=== PATIENT | female | born 1945 | race Two or more races ===

== ENCOUNTER 2020-10-26 08:44 | Emergency (ER) | payer MEDICARE, OTHER ==
[~2020-10-26] VITALS: Ht 152.4 cm; Wt 93.4 kg
[2020-10-26 10:49] VITALS: BP 151/70
[2020-10-26] MEDS ORDERED: cefTRIAXone SOD 1,000 MG VL IM ONE (11:00)
[2020-10-26] MEDS ORDERED: cefTRIAXone SOD 1,000 MG VL ONE (11:01)
== END 2020-10-26 11:24 | disposition home or self-care (01) ==
LOC: ER 08:44
DX: L03.116 Cellulitis of left lower limb (principal); E78.5 Hyperlipidemia, unspecified; I10 Essential (primary) hypertension; Z88.5 Allergy status to narcotic agent; Z90.89 Acquired absence of other organs; Z90.710 Acquired absence of both cervix and uterus; Z98.890 Other specified postprocedural states
CPT/HCPCS: 96372; 99283; J0696

== ENCOUNTER 2020-10-29 14:42 | Inpatient (IN) | payer OTHER ==
[~2020-10-29] VITALS: Ht 152.4 cm; Wt 95.0 kg
[2020-10-29] MEDS ORDERED: ACETAMINOPHEN 325 MG TAB PO PRN (16:45)
[2020-10-29] MEDS ORDERED: ONDANSETRON HCL 4 MG/2 ML VIAL IV PRN (16:45)
[2020-10-29] MEDS ORDERED: TEMAZEPAM 15 MG CAP PO PRN (16:45)
[2020-10-29] MEDS ORDERED: DOCUSATE SOD 100 MG CAP PO PRN (16:45)
[2020-10-29] MEDS ORDERED: NITROGLYCERIN 0.4 MG SL TAB SL PRN (16:45)
[2020-10-29] MEDS ORDERED: CEFEPIME 2 GM in SODIUM CHL 0.9% 50 ML IV ONE (16:45)
[2020-10-29 17:25] LABS: Basophils # (auto) 0.1 10 ^3/uL (0-0.2); Eosinophils # (auto) 0.1 10 ^3/uL (0-0.8); Eosinophils % (auto) 1.6 % (0.0-7.0); Hematocrit 36.2 % (36.0-46.0); Hemoglobin 12.5 g/dL (12.2-16.2); Lymphocytes # (auto) 0.7 10 ^3/uL (0.4-5.4); Mean Corpuscular Hemoglobin 30.5 pg (28.0-32.0); Mean Corpuscular Hgb Conc. 34.5 g/dL (32.0-36.0); Mean Corpuscular Volume 88.4 fL (80.0-100.0); Monocytes # (auto) 0.5 10 ^3/uL (0-1.3); Monocytes % (auto) 8.2 % (0.0-12.0); Neutrophils % (auto) 78.2 % (37.0-80.0); Red Blood Cells 4.09 10^6/uL (4.0-5.20); Red Cell Distribution Width 15.6 % (11.8-14.3); White Blood Cell 6.4 10^3/uL (4.4-10.8)
[2020-10-29 17:26] VITALS: BP 104/78
[2020-10-29] MEDS: DOXYCYCLINE 100MG/250ML 250 ML IV SCH (17:32)
[2020-10-29 17:48] LABS: Albumin 3.1 g/dL (3.4-5.0); Calcium 8.6 mg/dL (8.5-10.1); Magnesium 1.9 mg/dL (1.6-2.6)
[2020-10-29] MEDS ORDERED: FURO20TA3 PO (17:53)
[2020-10-29] MEDS ORDERED: TRAM50TA2 PO (17:53)
[2020-10-29] MEDS ORDERED: POTA1TAB61 PO (17:53)
[2020-10-29] MEDS ORDERED: CEPH500C PO (17:53)
[2020-10-29] MEDS ORDERED: LOSA-39 PO (17:53)
[2020-10-29] MEDS ORDERED: HYDR25TA4 PO (17:53)
[2020-10-29] MEDS ORDERED: NEBI10TA2 PO (17:53)
[2020-10-29 17:55] LABS: BUN/Creatinine Ratio 15.6; Bilirubin, Total 0.4 mg/dL (0.2-1.0); CRP High Sensitivity 2.05 mg/dL (< 0.3); Total Protein 7.2 g/dL (6.4-8.2)
[2020-10-29 18:46] LABS: Potassium 2.9 mmol/L (3.5-5.1)
[2020-10-29] MEDS ORDERED: POTASSIUM CHL 20 Meq TABLET PO ONE ×2 (19:00→22:00)
[2020-10-29 20:00] VITALS: BP 136/67
[2020-10-29] MEDS ORDERED: FAMOTIDINE 20 MG TAB PO ONE (20:30)
[2020-10-29] MEDS ORDERED: ALUM & MAG HYDROX-SIMETH LIQ(MAALOX) 30 ML PO PRN (20:30)
[2020-10-29 22:00] VITALS: BP 136/67
[2020-10-29] MEDS: SODIUM CHLOR 0.9% PF (SALINE LOCK) 10ML VIAL/SYR IV SCH (22:00)
[2020-10-29] MEDS ORDERED: MAGNESIUM OXIDE 400 MG TAB PO ONE (22:00)
[2020-10-29 23:27] LABS: Urine Bacteria FEW /hpf (None Seen); Urine Blood Negative /uL (Negative); Urine Mucus FEW (None Seen); Urine Specific Gravity 1.012 (1.001-1.035); Urine WBC 1 /hpf (0 - 5)
[2020-10-30] MEDS: CEFEPIME 1 GM in SODIUM CHL 0.9% 50 ML IV SCH ×2 (00:55→08:37)
[2020-10-30] MEDS: DOXYCYCLINE 100MG/250ML 250 ML IV SCH ×2 (04:47→08:38)
[2020-10-30 05:00] VITALS: BP 153/60
[2020-10-30 05:23] LABS: Calcium 8.6 mg/dL (8.5-10.1); Magnesium 1.8 mg/dL (1.6-2.6); Potassium 3.3 mmol/L (3.5-5.1)
[2020-10-30 05:25] LABS: BUN/Creatinine Ratio 22.6
[2020-10-30 05:31] LABS: Cholesterol 150 mg/dL (< 200); HDL Cholesterol 58 mg/dL (40-59); LDL Cholesterol 80 mg/dL (< 100); Triglycerides 105 mg/dL (< 150)
[2020-10-30] MEDS: SODIUM CHLOR 0.9% PF (SALINE LOCK) 10ML VIAL/SYR IV SCH ×3 (06:00→22:05)
[2020-10-30] MEDS: LEVOTHYROXINE SODIUM 50 MCG TAB PO SCH (06:47)
[2020-10-30] MEDS ORDERED: MAGNESIUM OXIDE 400 MG TAB PO ONE (08:30)
[2020-10-30] MEDS ORDERED: POTASSIUM CHL 20 Meq TABLET PO ONE ×2 (08:30→12:00)
[2020-10-30 09:00] VITALS: BP 162/71
[2020-10-30] MEDS ORDERED: FAMOTIDINE 20 MG TAB PO SCH (10:00)
[2020-10-30] MEDS ORDERED: LOSARTAN POTASSIUM 50 MG TAB PO ONE (12:00)
[2020-10-30] MEDS: AMPICILLIN & SULBACTAM SODIUM 3 GM in SODIUM CHL 0.9% 100 ML IV SCH ×2 (12:11→23:09)
[2020-10-30 13:00] VITALS: BP 151/93
[2020-10-30 17:00] VITALS: BP 160/94
[2020-10-30 22:00] VITALS: BP 150/74
[2020-10-31 05:00] VITALS: BP 154/81
[2020-10-31 05:56] LABS: Basophils # (auto) 0 10 ^3/uL (0-0.2); Basophils % (auto) 0.6 % (0.0-2.0); Eosinophils # (auto) 0.2 10 ^3/uL (0-0.8); Eosinophils % (auto) 3.8 % (0.0-7.0); Hematocrit 35.1 % (36.0-46.0); Hemoglobin 12.2 g/dL (12.2-16.2); Lymphocytes # (auto) 1.3 10 ^3/uL (0.4-5.4); Lymphocytes % (auto) 24.5 % (10.0-50.0); Mean Corpuscular Hemoglobin 30.4 pg (28.0-32.0); Mean Corpuscular Hgb Conc. 34.6 g/dL (32.0-36.0); Mean Corpuscular Volume 87.9 fL (80.0-100.0); Monocytes # (auto) 0.5 10 ^3/uL (0-1.3); Monocytes % (auto) 10.3 % (0.0-12.0); Neutrophils # (auto) 3.2 10 ^3/uL (1.6-8.6); Neutrophils % (auto) 60.8 % (37.0-80.0); Nucleated Red Blood Cells % 0.1 %; Red Blood Cells 3.99 10^6/uL (4.0-5.20); Red Cell Distribution Width 15.9 % (11.8-14.3); White Blood Cell 5.3 10^3/uL (4.4-10.8)
[2020-10-31 06:17] LABS: Calcium 8.6 mg/dL (8.5-10.1); Potassium 3.3 mmol/L (3.5-5.1)
[2020-10-31 06:19] LABS: BUN/Creatinine Ratio 23.9
[2020-10-31] MEDS: SODIUM CHLOR 0.9% PF (SALINE LOCK) 10ML VIAL/SYR IV SCH ×3 (06:39→22:19)
[2020-10-31] MEDS: AMPICILLIN & SULBACTAM SODIUM 3 GM in SODIUM CHL 0.9% 100 ML IV SCH ×5 (06:40→23:28)
[2020-10-31] MEDS: LEVOTHYROXINE SODIUM 50 MCG TAB PO SCH (06:40)
[2020-10-31 09:00] VITALS: BP 155/99
[2020-10-31] MEDS: FLORASTOR (S. BOULARDII) 250 MG CAP PO SCH (09:32)
[2020-10-31] MEDS ORDERED: LOSARTAN POTASSIUM 50 MG TAB PO SCH (10:00)
[2020-10-31] MEDS ORDERED: LOSARTAN POTASSIUM 50 MG TAB PO ONE (10:00)
[2020-10-31] MEDS ORDERED: POTASSIUM CHL 20 Meq TABLET PO ONE (10:00)
[2020-10-31] MEDS: LOPERAMIDE HCL 2 MG CAP PO PRN ×2 (10:35→17:49)
[2020-10-31 13:00] VITALS: BP 151/70
[2020-10-31] MEDS: traMADol HCL 50 MG TAB PO PRN ×2 (16:30→23:28)
[2020-10-31 17:00] VITALS: BP 158/77
[2020-10-31 22:00] VITALS: BP 159/78
[2020-11-01 05:00] VITALS: BP 159/71
[2020-11-01 05:44] LABS: Calcium 8.2 mg/dL (8.5-10.1); Potassium 3.7 mmol/L (3.5-5.1)
[2020-11-01] MEDS: SODIUM CHLOR 0.9% PF (SALINE LOCK) 10ML VIAL/SYR IV SCH ×3 (06:30→22:12)
[2020-11-01] MEDS: LEVOTHYROXINE SODIUM 50 MCG TAB PO SCH (06:34)
[2020-11-01] MEDS: AMPICILLIN & SULBACTAM SODIUM 3 GM in SODIUM CHL 0.9% 100 ML IV SCH ×4 (06:34→23:49)
[2020-11-01 08:00] VITALS: BP 149/88
[2020-11-01 08:51] VITALS: BP 149/88
[2020-11-01] MEDS: LOSARTAN POTASSIUM 50 MG TAB PO SCH (08:52)
[2020-11-01] MEDS: FLORASTOR (S. BOULARDII) 250 MG CAP PO SCH (08:53)
[2020-11-01 13:00] VITALS: BP 162/93
[2020-11-01] MEDS ORDERED: FUROSEMIDE 20 MG TAB PO ONE (15:15)
[2020-11-01] MEDS ORDERED: ATENOLOL 25 MG TAB PO ONE (15:15)
[2020-11-01 17:00] VITALS: BP 145/81
[2020-11-01 22:00] VITALS: BP 157/87
[2020-11-02 05:03] VITALS: BP 151/63
[2020-11-02] MEDS: AMPICILLIN & SULBACTAM SODIUM 3 GM in SODIUM CHL 0.9% 100 ML IV SCH (06:14)
[2020-11-02] MEDS: SODIUM CHLOR 0.9% PF (SALINE LOCK) 10ML VIAL/SYR IV SCH (06:14)
[2020-11-02] MEDS: LEVOTHYROXINE SODIUM 50 MCG TAB PO SCH (06:50)
[2020-11-02 09:00] VITALS: BP 160/87
[2020-11-02] MEDS: LOSARTAN POTASSIUM 50 MG TAB PO SCH (09:22)
[2020-11-02] MEDS: FLORASTOR (S. BOULARDII) 250 MG CAP PO SCH (09:23)
[2020-11-02 09:30] VITALS: BP 160/87
[2020-11-02] MEDS ORDERED: FUROSEMIDE 20 MG TAB PO SCH (10:00)
[2020-11-02] MEDS ORDERED: ATENOLOL 50 MG TAB PO SCH (10:00)
== END 2020-11-02 11:50 | disposition home or self-care (01) | DRG 871 ==
LOC: TELE 14:42 → CENTRAL 15:20
PROVIDERS: ADMIT Internal Medicine; ATTEND Internal Medicine
PROC: 05HB33Z Insertion of Infusion Device into Right Basilic Vein, Percutaneous Approach (ICD-10-PCS; principal; 2020-10-30)
PROC: B54MZZA Ultrasonography of Right Upper Extremity Veins, Guidance (ICD-10-PCS; 2020-10-30)
DX: A41.9 Sepsis, unspecified organism (principal); N17.0 Acute kidney failure with tubular necrosis; L03.116 Cellulitis of left lower limb; Z68.41 Body mass index [BMI] 40.0-44.9, adult; M85.80 Other specified disorders of bone density and structure, unspecified site; E03.9 Hypothyroidism, unspecified; E78.5 Hyperlipidemia, unspecified; I10 Essential (primary) hypertension; E87.6 Hypokalemia; E66.01 Morbid (severe) obesity due to excess calories; I83.92 Asymptomatic varicose veins of left lower extremity; Z20.822 Contact with and (suspected) exposure to COVID-19
CPT/HCPCS: 36415; 80048; 80053; 80061; 81001; 82306; 82962; 83036; 83735; 84439; 84443; 85025; 85652; 86141; 87040; 87426; 87493; 93005; 93925; 93970; G0378; J3490

== ENCOUNTER → 2021-05-05 | Outpatient (CLI) | payer OTHER ==
[~2021-05-05] MED LIST: ALBUTEROL SULF 2.5 MG/0.5ML(0.5%) NEB SOLN ONE; CEPH500C PO; FURO20TA3 PO; HYDR25TA4 PO; LOSA-39 PO; NEBI10TA2 PO; POTA1TAB61 PO; TRAM50TA2 PO
== END | disposition home or self-care (01) ==
LOC: RT 08:34
PROVIDERS: ATTEND Internal Medicine Pulmonary Disease
DX: J98.4 Other disorders of lung (principal); R05.9 Cough, unspecified
CPT/HCPCS: 94060; 94727; 94729

== ENCOUNTER → 2021-06-07 | Outpatient (CLI) | payer OTHER, MEDICARE ==
[~2021-06-07] MED LIST changes: -ALBUTEROL SULF 2.5 MG/0.5ML(0.5%) NEB SOLN ONE
[2021-06-07 08:56] LABS: Basophils # (auto) 0.1 10 ^3/uL (0-0.2); Basophils % (auto) 1.1 % (0.0-2.0); Eosinophils # (auto) 0.2 10 ^3/uL (0-0.8); Eosinophils % (auto) 3.8 % (0.0-7.0); Hemoglobin 12.3 g/dL (12.2-16.2); Lymphocytes # (auto) 1.9 10 ^3/uL (0.4-5.4); Lymphocytes % (auto) 33.3 % (10.0-50.0); Mean Corpuscular Hemoglobin 28.6 pg (28.0-32.0); Mean Corpuscular Hgb Conc. 33.2 g/dL (32.0-36.0); Mean Corpuscular Volume 86.1 fL (80.0-100.0); Monocytes # (auto) 0.5 10 ^3/uL (0-1.3); Monocytes % (auto) 7.8 % (0.0-12.0); Neutrophils # (auto) 3.1 10 ^3/uL (1.6-8.6); Nucleated Red Blood Cells % 0.2 %; Red Cell Distribution Width 14.9 % (11.8-14.3); White Blood Cell 5.8 10^3/uL (4.4-10.8)
[2021-06-07 09:11] LABS: Urine Bacteria NONE SEEN /hpf (None Seen); Urine Blood Negative /uL (Negative); Urine Specific Gravity 1.015 (1.001-1.035); Urine WBC 2 /hpf (0 - 5)
[2021-06-07 09:28] LABS: Calcium 9.1 mg/dL (8.5-10.1); Potassium 3.2 mmol/L (3.5-5.1)
[2021-06-07 09:34] LABS: Albumin 3.7 g/dL (3.4-5.0); BUN/Creatinine Ratio 20.2; Bilirubin, Total 0.6 mg/dL (0.2-1.0); Total Protein 7.5 g/dL (6.4-8.2); Uric Acid 5.1 mg/dL (2.6-6.0)
[2021-06-07 09:41] LABS: Thyroid Stimulating Hormone 5.07 uIU/mL (0.358-3.74)
[2021-06-08 13:28] LABS: Free T4 (Free Thyroxine) 1.14 ng/dL (0.89-1.76)
== END | disposition home or self-care (01) ==
LOC: LAB 08:25
PROVIDERS: ATTEND Internal Medicine
DX: D69.6 Thrombocytopenia, unspecified (principal); I10 Essential (primary) hypertension; M25.50 Pain in unspecified joint; E03.9 Hypothyroidism, unspecified
CPT/HCPCS: 36415; 80053; 81001; 82607; 83615; 84439; 84443; 84550; 85025; 85652; 86200; 86431

== ENCOUNTER → 2023-03-23 | Outpatient (CLI) | payer BC ==
[~2023-03-23] MED LIST changes: -LOSA-39 PO; +LOSA100T58 PO
[2023-03-23 09:59] LABS: Basophils # (auto) 0.1 10 ^3/uL (0-0.2); Eosinophils # (auto) 0.3 10 ^3/uL (0-0.8); Eosinophils % (auto) 3.6 % (0.0-7.0); Hematocrit 37.7 % (36.0-46.0); Hemoglobin 12.8 g/dL (12.2-16.2); Lymphocytes % (auto) 26.3 % (10.0-50.0); Mean Corpuscular Hemoglobin 29.9 pg (28.0-32.0); Mean Corpuscular Hgb Conc. 33.8 g/dL (32.0-36.0); Mean Corpuscular Volume 88.4 fL (80.0-100.0); Monocytes # (auto) 0.7 10 ^3/uL (0-1.3); Monocytes % (auto) 9.8 % (0.0-12.0); Neutrophils # (auto) 4.4 10 ^3/uL (1.6-8.6); Neutrophils % (auto) 59.3 % (37.0-80.0); Nucleated Red Blood Cells % 0.1 %; Red Blood Cells 4.27 10^6/uL (4.0-5.20); Red Cell Distribution Width 14.6 % (11.8-14.3); White Blood Cell 7.5 10^3/uL (4.4-10.8)
[2023-03-23 10:30] LABS: Albumin 4.5 g/dL (3.2-4.8); Alkaline Phosphatase 88 U/L (46-116); Anion Gap 7 (5-15); Aspartate Aminotransferase 17 U/L (13-40); BUN/Creatinine Ratio 17.5 (10.0-20.0); Blood Urea Nitrogen 22 mg/dL (9-23); Calcium 9.6 mg/dL (8.5-10.1); Carbon Dioxide 26 mmol/L (20-30); Chloride 108 mmol/L (98-107); Glucose 98 mg/dL (74-106); Potassium 3.6 mmol/L (3.5-5.1); Sodium 141 mmol/L (136-145)
[2023-03-23 10:31] LABS: Bilirubin, Total 0.5 mg/dL (0.2-1.0)
[2023-03-23 10:32] LABS: Total Protein 7.3 g/dL (5.7-8.2)
[2023-03-23 10:45] LABS: Alanine Aminotransferase < 9 U/L (7-40)
[2023-03-23 11:20] LABS: Uric Acid 6.3 mg/dL (3.1-7.8)
== END | disposition home or self-care (01) ==
LOC: LAB 09:23
PROVIDERS: ATTEND Internal Medicine
DX: I12.9 Hypertensive chronic kidney disease with stage 1 through stage 4 chronic kidney disease, or unspecified chronic kidney disease (principal); N18.30 Chronic kidney disease, stage 3 unspecified
CPT/HCPCS: 36415; 80053; 82270; 84439; 84443; 84550; 85025

== ENCOUNTER → 2023-07-28 | Outpatient (CLI) | payer MEDICARE ==
[2023-07-28 08:46] LABS: Basophils # (auto) 0.1 10 ^3/uL (0-0.2); Basophils % (auto) 1.2 % (0.0-2.0); Eosinophils # (auto) 0.4 10 ^3/uL (0-0.8); Eosinophils % (auto) 5.8 % (0.0-7.0); Hematocrit 37.6 % (36.0-46.0); Hemoglobin 12.4 g/dL (12.2-16.2); Lymphocytes # (auto) 1.6 10 ^3/uL (0.4-5.4); Lymphocytes % (auto) 25.7 % (10.0-50.0); Mean Corpuscular Hemoglobin 28.9 pg (28.0-32.0); Mean Corpuscular Hgb Conc. 32.9 g/dL (32.0-36.0); Mean Corpuscular Volume 87.7 fL (80.0-100.0); Monocytes # (auto) 0.6 10 ^3/uL (0-1.3); Monocytes % (auto) 10.2 % (0.0-12.0); Neutrophils # (auto) 3.6 10 ^3/uL (1.6-8.6); Neutrophils % (auto) 57.1 % (37.0-80.0); Red Blood Cells 4.28 10^6/uL (4.0-5.20); Red Cell Distribution Width 14.4 % (11.8-14.3); White Blood Cell 6.2 10^3/uL (4.4-10.8)
[2023-07-28 08:50] LABS: Urine Bacteria NONE SEEN /hpf (None Seen); Urine Blood Negative /uL (Negative); Urine Clarity Clear (Clear); Urine Color Colorless (Yellow); Urine Protein, UAD Negative (Negative); Urine Specific Gravity 1.011 (1.001-1.035); Urine Urobilinogen Normal (Negative); Urine WBC <1 /hpf (0 - 5); Urine pH 5.5 (5.0-8.0)
[2023-07-28 09:20] LABS: Erythrocyte Sedimentation Rate 20 mm/hr (0-20)
[2023-07-28 09:44] LABS: Alanine Aminotransferase 10 U/L (7-40); Albumin 4.4 g/dL (3.2-4.8); Alkaline Phosphatase 80 U/L (46-116); Anion Gap 7 (5-15); Aspartate Aminotransferase 22 U/L (13-40); BUN/Creatinine Ratio 13.7 (10.0-20.0); Blood Urea Nitrogen 20 mg/dL (9-23); Calcium 9.6 mg/dL (8.5-10.1); Carbon Dioxide 29 mmol/L (20-30); Chloride 105 mmol/L (98-107); Glucose 86 mg/dL (74-106); LDL Cholesterol 90 mg/dL (< 100); Potassium 3.6 mmol/L (3.5-5.1); Sodium 141 mmol/L (136-145); Triglycerides 133 mg/dL (< 150)
[2023-07-28 09:45] LABS: Bilirubin, Total 0.5 mg/dL (0.2-1.0); Cholesterol 170 mg/dL (< 200); HDL Cholesterol 62 mg/dL (40-59); Total Protein 6.9 g/dL (5.7-8.2)
== END | disposition home or self-care (01) ==
LOC: LAB 08:24
PROVIDERS: ATTEND Internal Medicine
DX: I10 Essential (primary) hypertension (principal); M06.4 Inflammatory polyarthropathy
CPT/HCPCS: 36415; 80053; 80061; 81001; 84439; 84443; 85025; 85652; 86141

== ENCOUNTER 2023-11-12 12:55 | Inpatient (IN) | payer BC, MEDICARE ==
[~2023-11-12] VITALS: Ht 152.4 cm; Wt 90.0 kg
[~2023-11-12 12:55] MED LIST changes: +LOSA-535 PO; -LOSA100T58 PO; +POTA-215 PO; -POTA1TAB61 PO
[2023-11-12 13:55] LABS: Basophils # (auto) 0.1 10 ^3/uL (0-0.2); Basophils % (auto) 0.6 % (0.0-2.0); Eosinophils # (auto) 0.3 10 ^3/uL (0-0.8); Eosinophils % (auto) 2.8 % (0.0-7.0); Hematocrit 37.2 % (36.0-46.0); Hemoglobin 12.7 g/dL (12.2-16.2); Lymphocytes # (auto) 0.9 10 ^3/uL (0.4-5.4); Lymphocytes % (auto) 8.8 % (10.0-50.0); Mean Corpuscular Hemoglobin 30.3 pg (28.0-32.0); Mean Corpuscular Hgb Conc. 34.2 g/dL (32.0-36.0); Mean Corpuscular Volume 88.7 fL (80.0-100.0); Monocytes # (auto) 0.8 10 ^3/uL (0-1.3); Monocytes % (auto) 7.6 % (0.0-12.0); Neutrophils # (auto) 8.3 10 ^3/uL (1.6-8.6); Neutrophils % (auto) 80.2 % (37.0-80.0); Nucleated Red Blood Cells % 0.1 %; Red Blood Cells 4.19 10^6/uL (4.0-5.20); Red Cell Distribution Width 14.2 % (11.8-14.3); White Blood Cell 10.3 10^3/uL (4.4-10.8)
[2023-11-12 14:04] LABS: Chloride 108 mmol/L (98-107); Potassium 3.7 mmol/L (3.5-5.1); Sodium 141 mmol/L (136-145)
[2023-11-12 14:05] LABS: Anion Gap 10 (5-15); Calcium 9.8 mg/dL (8.5-10.1); Carbon Dioxide 23 mmol/L (20-30)
[2023-11-12 14:10] LABS: BUN/Creatinine Ratio 14.7 (10.0-20.0); Blood Urea Nitrogen 28 mg/dL (9-23); Glucose 99 mg/dL (74-106)
[2023-11-12] MEDS ORDERED: DOCUSATE SOD 100 MG CAP PO PRN (23:30)
[2023-11-13] MEDS ORDERED: NITROGLYCERIN 0.4 MG SL TAB SL PRN
[2023-11-13] MEDS ORDERED: MORPHINE SULFATE INJ 2 MG/ml SYRG IV PRN
[2023-11-13] MEDS: D5W/SOD CHL 0.45% 1,000 ML IV SCH (01:00)
[2023-11-13 05:12] LABS: Basophils # (auto) 0 10 ^3/uL (0-0.2); Basophils % (auto) 0.5 % (0.0-2.0); Eosinophils # (auto) 0.2 10 ^3/uL (0-0.8); Eosinophils % (auto) 2.4 % (0.0-7.0); Hematocrit 35.6 % (36.0-46.0); Lymphocytes # (auto) 1.8 10 ^3/uL (0.4-5.4); Lymphocytes % (auto) 18.2 % (10.0-50.0); Mean Corpuscular Hemoglobin 29.4 pg (28.0-32.0); Mean Corpuscular Hgb Conc. 33.8 g/dL (32.0-36.0); Mean Corpuscular Volume 87.1 fL (80.0-100.0); Monocytes # (auto) 0.9 10 ^3/uL (0-1.3); Monocytes % (auto) 9.1 % (0.0-12.0); Neutrophils # (auto) 6.7 10 ^3/uL (1.6-8.6); Neutrophils % (auto) 69.8 % (37.0-80.0); Red Blood Cells 4.08 10^6/uL (4.0-5.20); Red Cell Distribution Width 14.6 % (11.8-14.3); White Blood Cell 9.6 10^3/uL (4.4-10.8)
[2023-11-13 05:21] LABS: Alanine Aminotransferase 14 U/L (7-40); Alkaline Phosphatase 79 U/L (46-116); Anion Gap 11 (5-15); Aspartate Aminotransferase 14 U/L (13-40); BUN/Creatinine Ratio 16.2 (10.0-20.0); Bilirubin, Total 0.3 mg/dL (0.2-1.0); Blood Urea Nitrogen 31 mg/dL (9-23); Calcium 9.8 mg/dL (8.7-10.4); Carbon Dioxide 21 mmol/L (20-30); Chloride 109 mmol/L (98-107); Glucose 89 mg/dL (74-106); Sodium 141 mmol/L (136-145); Total Protein 6.7 g/dL (5.7-8.2)
[2023-11-13] MEDS: ACETAMINOPHEN 325 MG TAB PO PRN (07:46)
[2023-11-13 08:16] VITALS: O2SAT 98
[2023-11-13] MEDS: POTASSIUM EFFERVESENT TAB 25 MEQ PO ONE (08:43)
[2023-11-13 08:56] LABS: Magnesium 1.7 mg/dL (1.6-2.6)
[2023-11-13 09:18] LABS: Urine Bacteria None Seen /hpf (None Seen)
[2023-11-13 09:35] LABS: Urine Blood Negative /uL (Negative); Urine Clarity Clear (Clear); Urine Color Yellow (Yellow); Urine Hyaline Cast MANY /lpf (0 - 2); Urine Mucus FEW (None Seen); Urine Protein, UAD 1+ (Negative); Urine Specific Gravity 1.018 (1.001-1.035); Urine Urobilinogen Normal (Negative); Urine WBC 4 /hpf (0 - 5); Urine pH 5.5 (5.0-9.0)
[2023-11-13] MEDS: ONDANSETRON HCL 4 MG/2 ML VIAL IV PRN (09:41)
[2023-11-13 09:47] LABS: Creatinine, Urine 153.76 mg/dL (30.0-125.0)
[2023-11-13] MEDS: SODIUM CHLORIDE 0.9% 1,000 ML IV SCH (10:11)
[2023-11-13] MEDS: PANTOPRAZOLE 40 MG/10 ML VIAL INJ IV SCH (10:22)
[2023-11-13] MEDS: CARVEDILOL 3.125 MG TAB PO SCH (10:22)
[2023-11-13] MEDS: FUROSEMIDE 20 MG/2 ML VIAL IV SCH (10:22)
[2023-11-13 20:00] VITALS: PULSE 78; RESP 12; O2SAT 96
[2023-11-13 21:00] VITALS: PULSE 80; RESP 20; O2SAT 95
[2023-11-13 21:30] VITALS: BP 132/86; PULSE 82; RESP 18; TEMP 97; O2SAT 95
[2023-11-13 22:02] VITALS: BP 151/61; PULSE 68; RESP 18; O2SAT 96
[2023-11-13] MEDS: ATORVASTATIN 20 MG TAB PO SCH (23:01)
[2023-11-13] MEDS: metroNIDAZOLE 500MG/100ML 100 ML IV SCH (23:10)
[2023-11-13] MEDS ORDERED: LEVO125T7 PO (23:39)
[2023-11-13] MEDS ORDERED: PRAV20TA3 PO (23:44)
[2023-11-13] MEDS ORDERED: CYCL-614 PO (23:44)
[2023-11-13] MEDS ORDERED: AMLO1TAB22 PO (23:44)
[2023-11-13] MEDS ORDERED: GAB100C PO (23:44)
[2023-11-13] MEDS ORDERED: BENZ100C97 PO (23:44)
[2023-11-14] VITALS (7 sets, daily range): BP systolic 117–152; BP diastolic 46–82; PULSE 76–105; RESP 18–20; TEMP 97.9–98.2; O2SAT 94–99
[2023-11-14] MEDS: levoFLOXacin 500MG 100 ML IV ONE (00:33)
[2023-11-14 09:40] LABS: Chloride 107 mmol/L (98-107); Potassium 3.9 mmol/L (3.5-5.1); Sodium 140 mmol/L (136-145)
[2023-11-14 09:41] LABS: Anion Gap 9 (5-15); Calcium 9.5 mg/dL (8.5-10.1); Carbon Dioxide 24 mmol/L (20-30)
[2023-11-14 09:46] LABS: BUN/Creatinine Ratio 15.6 (10.0-20.0); Blood Urea Nitrogen 25 mg/dL (9-23); Glucose 94 mg/dL (74-106)
[2023-11-14 09:47] LABS: Magnesium 1.5 mg/dL (1.6-2.6)
[2023-11-14] MEDS: levoFLOXacin 250MG 50 ML IV SCH (10:16)
[2023-11-14] MEDS: MAGNESIUM SULFATE 1GM/100ML 100 ML IV SCH (12:27)
[2023-11-14 13:12] LABS: Basophils # (auto) 0.1 10 ^3/uL (0-0.2); Basophils % (auto) 0.8 % (0.0-2.0); Eosinophils # (auto) 0.3 10 ^3/uL (0-0.8); Eosinophils % (auto) 2.9 % (0.0-7.0); Hematocrit 35.6 % (36.0-46.0); Hemoglobin 11.7 g/dL (12.2-16.2); Lymphocytes # (auto) 1.2 10 ^3/uL (0.4-5.4); Lymphocytes % (auto) 10.2 % (10.0-50.0); Mean Corpuscular Hemoglobin 29.5 pg (28.0-32.0); Mean Corpuscular Hgb Conc. 32.9 g/dL (32.0-36.0); Mean Corpuscular Volume 89.5 fL (80.0-100.0); Monocytes # (auto) 1.4 10 ^3/uL (0-1.3); Monocytes % (auto) 11.9 % (0.0-12.0); Neutrophils # (auto) 8.4 10 ^3/uL (1.6-8.6); Neutrophils % (auto) 74.2 % (37.0-80.0); Nucleated Red Blood Cells % 0.1 %; Red Blood Cells 3.97 10^6/uL (4.0-5.20); Red Cell Distribution Width 14.8 % (11.8-14.3); White Blood Cell 11.4 10^3/uL (4.4-10.8)
[2023-11-15] VITALS (7 sets, daily range): BP systolic 133–147; BP diastolic 47–66; PULSE 71–86; RESP 16–20; TEMP 36.6; O2SAT 92–96
[2023-11-15 06:53] LABS: Calcium 9.1 mg/dL (8.5-10.1); Chloride 108 mmol/L (98-107); Potassium 3.4 mmol/L (3.5-5.1); Sodium 141 mmol/L (136-145)
[2023-11-15 06:54] LABS: Anion Gap 9 (5-15); Carbon Dioxide 24 mmol/L (20-30)
[2023-11-15 06:59] LABS: BUN/Creatinine Ratio 14.7 (10.0-20.0); Blood Urea Nitrogen 20 mg/dL (9-23); Glucose 99 mg/dL (74-106)
[2023-11-15 07:10] LABS: Basophils # (auto) 0 10 ^3/uL (0-0.2); Basophils % (auto) 0.2 % (0.0-2.0); Eosinophils # (auto) 0.2 10 ^3/uL (0-0.8); Eosinophils % (auto) 2.7 % (0.0-7.0); Hematocrit 34.8 % (36.0-46.0); Hemoglobin 11.7 g/dL (12.2-16.2); Lymphocytes # (auto) 1.2 10 ^3/uL (0.4-5.4); Lymphocytes % (auto) 13.4 % (10.0-50.0); Mean Corpuscular Hemoglobin 29.3 pg (28.0-32.0); Mean Corpuscular Hgb Conc. 33.6 g/dL (32.0-36.0); Mean Corpuscular Volume 87.4 fL (80.0-100.0); Monocytes # (auto) 0.9 10 ^3/uL (0-1.3); Monocytes % (auto) 9.5 % (0.0-12.0); Neutrophils # (auto) 6.7 10 ^3/uL (1.6-8.6); Neutrophils % (auto) 74.2 % (37.0-80.0); Nucleated Red Blood Cells % 0.1 %; Red Blood Cells 3.98 10^6/uL (4.0-5.20); Red Cell Distribution Width 14.4 % (11.8-14.3)
[2023-11-15] MEDS ORDERED: LOPERAMIDE HCL 2 MG CAP/TAB PO SCH (10:00)
[2023-11-15] MEDS: LOPERAMIDE HCL 2 MG CAP/TAB PO PRN (10:10)
[2023-11-15] MEDS: POTASSIUM EFFERVESENT TAB 25 MEQ PO ONE (10:51)
[2023-11-15] MEDS ORDERED: METR-344 PO (13:42)
== END 2023-11-15 16:05 | disposition home or self-care (01) | DRG 391 ==
LOC: ER 12:55 → TELE 23:53 → TELE-WESTW 11-13 22:35
PROVIDERS: ADMIT Nurse Practitioner Family; ATTEND Nurse Practitioner Acute Care
DX: K52.9 Noninfective gastroenteritis and colitis, unspecified (principal); N17.0 Acute kidney failure with tubular necrosis; K92.1 Melena; I11.0 Hypertensive heart disease with heart failure; N28.1 Cyst of kidney, acquired; E78.5 Hyperlipidemia, unspecified; K27.7 Chronic peptic ulcer, site unspecified, without hemorrhage or perforation; E03.9 Hypothyroidism, unspecified; E66.9 Obesity, unspecified; E87.6 Hypokalemia; R33.9 Retention of urine, unspecified; I50.9 Heart failure, unspecified; Z90.710 Acquired absence of both cervix and uterus; Z82.49 Family history of ischemic heart disease and other diseases of the circulatory system; Z68.38 Body mass index [BMI] 38.0-38.9, adult; Z79.899 Other long term (current) drug therapy
CPT/HCPCS: 36415; 74176; 76775; 80048; 80053; 81001; 82270; 82570; 83735; 83880; 84100; 84300; 85025; 85048; G0378; J1956; J2405; J3490

== ENCOUNTER → 2023-12-11 | Outpatient (CLI) | payer MEDICARE ==
[~2023-12-11] MED LIST changes: +AMLO1TAB22 PO; +BENZ100C97 PO; -CEPH500C PO; +CYCL-614 PO; +GAB100C PO; +LEVO125T7 PO; +METR-344 PO; +PRAV20TA3 PO; -TRAM50TA2 PO
[2023-12-11 13:19] LABS: Basophils # (auto) 0.1 10 ^3/uL (0-0.2); Eosinophils # (auto) 0.3 10 ^3/uL (0-0.8); Eosinophils % (auto) 2.8 % (0.0-7.0); Hematocrit 36.1 % (36.0-46.0); Hemoglobin 12.2 g/dL (12.2-16.2); Lymphocytes # (auto) 1.7 10 ^3/uL (0.4-5.4); Lymphocytes % (auto) 18.5 % (10.0-50.0); Mean Corpuscular Hemoglobin 29.8 pg (28.0-32.0); Mean Corpuscular Hgb Conc. 33.9 g/dL (32.0-36.0); Mean Corpuscular Volume 87.9 fL (80.0-100.0); Monocytes # (auto) 0.8 10 ^3/uL (0-1.3); Monocytes % (auto) 8.3 % (0.0-12.0); Neutrophils # (auto) 6.5 10 ^3/uL (1.6-8.6); Neutrophils % (auto) 69.4 % (37.0-80.0); Red Blood Cells 4.11 10^6/uL (4.0-5.20); Red Cell Distribution Width 15.9 % (11.8-14.3); White Blood Cell 9.3 10^3/uL (4.4-10.8)
[2023-12-11 13:32] LABS: Albumin 4.2 g/dL (3.2-4.8); Alkaline Phosphatase 64 U/L (46-116); Anion Gap 9 (5-15); Aspartate Aminotransferase 18 U/L (13-40); BUN/Creatinine Ratio 12.1 (10.0-20.0); Bilirubin, Total 0.5 mg/dL (0.2-1.0); Blood Urea Nitrogen 21 mg/dL (9-23); CRP High Sensitivity 0.26 mg/dL (<1.0); Calcium 9.5 mg/dL (8.7-10.4); Carbon Dioxide 27 mmol/L (20-30); Chloride 107 mmol/L (98-107); Glucose 97 mg/dL (74-106); Potassium 3.3 mmol/L (3.5-5.1); Sodium 143 mmol/L (136-145); Total Protein 6.8 g/dL (5.7-8.2)
[2023-12-11 14:02] LABS: Alanine Aminotransferase < 9 U/L (7-40)
[2023-12-11 14:07] LABS: Erythrocyte Sedimentation Rate 26 mm/hr (0-20)
== END | disposition home or self-care (01) ==
LOC: LAB 12:51
PROVIDERS: ATTEND Internal Medicine
DX: K52.9 Noninfective gastroenteritis and colitis, unspecified (principal)
CPT/HCPCS: 36415; 80053; 85025; 85652; 86141

== ENCOUNTER → 2024-02-06 | Outpatient (CLI) | payer MEDICARE | END | disposition home or self-care (01) | LOC: LAB 09:14 | PROVIDERS: ATTEND Internal Medicine | DX: N28.1 Cyst of kidney, acquired (principal) | CPT/HCPCS: 36415; 82565; 84520 ==